=== PATIENT | female | born 1970 | race Caucasian/White ===

== ENCOUNTER 2025-02-09 22:40 | Emergency (ER) | payer BC, SELFPAY ==
--- NOTE | 2025-02-09 22:42 | ED.GENADUL_ITS ---
Discharge Plan Disposition Patient Disposition: Home Condition: Good Discharge Details Clinical Impression: Dog bite of axilla Primary Care Provider: Unknown,Unknown ED Provider: Ras King Meds and New Rx's Prescriptions: New amoxicillin-pot clavulanate 875-125 mg tablet 1 tab PO BID Qty: 6 0RF Continued oxcarbazepine 300 mg tablet 450 mg PO BID clonazepam [Klonopin] 0.5 mg tablet See Rx Instructions PO BID Rx Instructions: orally twice a day; take 1/4 of tab in morning, and 3/4 of tab in evening methylphenidate PO Rx Instructions: 54mg tab and 27mg tab in morning estradiol [Climara] 0.0375 mg/24 hr patch weekly 1 patch transdermal .COMPLEX Rx Instructions: 1 patch transdermally; change twice weekly Discharge Instructions Instructions: Animal Bites ED Additional Instructions: You were seen in the ED for a dog bite to the axilla area. There is no significant skin tears that require any type of repair. X-rays show no evidence of foreign body or fracture. Your pain and bruising is related to more of the crush injury. Ice on and off and alternating acetaminophen with ibuprofen should help. I will place you on antibiotics for 3 days to help prevent infection. You should follow-up with primary care next week if you are not improving. Return to ED for significantly worsening pain, fever, swelling, redness, other concerns. HPI General Mode of arrival: ambulatory . Date/Time Provider Initiated Documentation: 02/09/25 22:42 . Limitations to Documentation: no limitations . Information obtained by: patient and RN notes reviewed . HPI Narrative: Patient presents to ED with dog bite to the left axillary area. Patient was bitten by family dog, a [place] Malinois. The dog is up-to-date on immunizations. Patient has significant pain in the axillary area. There appear to be a couple of superficial skin lacerations but a lot of bruising. Denies injury elsewhere. She is not sure about her last tetanus shot. No numbness or weakness distally. Related Data Home Medications ?Medication ?Instructions ?Recorded ?Confirmed clonazepam 0.5 mg tablet (Klonopin) See Rx Instruction s PO BID 02/09/25 02/09/25 estradiol 0.0375 mg/24 hr weekly 1 patch transdermal . COMPLEX 02/09/25 02/09/25 transdermal patch (Climara) methylphenidate PO 02/09/25 oxcarbazepine 300 mg tablet 450 mg PO BID 02/09/2502/24 amoxicillin 875 mg-potassium 1 tab PO BID #6 tabs 01/31 05/27 clavulanate 125 mg tablet Previous Rx's ?Medication ?Instructions ?Recorded amoxicillin 875 mg-potassium 1 tab PO BID #6 tabs 01/31 05/27 clavulanate 125 mg tablet Allergies Allergy/AdvReac Type Severity Reaction Status Date / Time amitriptyline AdvReac Unknown facial Verified 02/09/25 23:03 paralysis cephalexin (From Keflex) AdvReac Unknown GI Bleeding Verified 02/09/25 23:03 Exam Narrative Exam Narrative: Const: WDWN female in NAD. VS per triage. HEENT: NC/AT. Normal facial exam. Neck: Supple. Trachea midline. Lungs: Normal respiratory effort. Cor: RRR. Good radial pulses. Neuro: A+O x 3. Normal speech, mentation, gait. Cranial nerves II - XII grossly intact. No gross motor or sensory deficit. Ext: No C/C/E. 2 small abrasions in the left axilla area. Possibly 1 small puncture wound. Significant bruising and tenderness. Normal strength and sensation distally. Normal radial pulse. Medical Decision Making Patient presenting to ED with a dog bite to the left axillary area. This appears to be more of a crush injury and bruise with possibly 1 small puncture. No laceration requiring closure. Will update tetanus as patient is unsure of when last was obtained. Will give ketorolac for pain. Will dose with Augmentin and obtain x-ray of the left shoulder to evaluate for potential foreign body, unlikely fracture. X-ray of the left shoulder is negative for fracture and no foreign body appreciated. Mostly superficial skin injury with potentially a small puncture wound. Will cover with Augmentin for 3 days. Recommend ice on and off and use of Tylenol or Motrin for pain. Follow-up with primary care next week if not improving. Return precautions provided. Imaging Data Radiologic Study: Attestation: I personally reviewed and interpreted this imaging study as follows: Imaging: X-Ray My impression: see [facility] All Active Problems (Updated 02/10/25 @ 00:36 by Ras King MD) Dog bite of axilla (Acute) Social History Smoking/Tobacco Use Status: Never Smoking risk assessment performed?: Yes Alcohol Intake: never Drug use: Never Substance use type: does not use Housing: house Do you feel safe at home: Yes Do you feel safe in your relationship?: Yes
[2025-02-09 22:47] VITALS: BP 126/74; PULSE 60; RESP 18; TEMP 36.4; O2SAT 100
[2025-02-09 22:53] VITALS: BP 126/74; PULSE 60; RESP 18; TEMP 36.4; O2SAT 100
[2025-02-09] MEDS: Tetanus & Diphtheria Tox,ADULT 0.5 ML VIAL IM (23:15)
[2025-02-09] MEDS: Ketorolac 30 MG/ML VIAL IM (23:15)
[2025-02-09] MEDS: Amoxicillin 875/Clav. 125 TAB PO (23:23)
--- NOTE | 2025-02-09 23:41 | DI.RAD_ITS ---
Exam(s) XR SHOULDER LT COMPLETE 2+V EXAM: XR SHOULDER LT COMPLETE 2+V CLINICAL HISTORY: dog bite. TECHNIQUE: 2D digital imaging was performed of the left shoulder. Five images were obtained. AP, Grashey, Y-view and axillary views were obtained. COMPARISON: No exams were available for comparison FINDINGS: BONES: No acute fracture is present. No bony destructive lesion is seen. JOINTS: No dislocation present. There are mild degenerative changes of the left acromioclavicular joint. SOFT TISSUE: Normal. There are no radiopaque foreign body seen in the soft tissues. IMPRESSION: 1. No acute abnormality. 2. The preliminary [facility] report was reviewed. DATA REPOSITORY: RADIATION DOSE DELIVERED:
--- NOTE | 2025-02-10 00:41 | DI.[facility]_ITS ---
PROCEDURE INFORMATION: Exam: XR Left Shoulder Exam date and time: 02/09/2025 11:39 PM Age: 54 years old Clinical indication: Injury or trauma; Other: Dog bite; Shoulder; Left; Injury date: 02/09/25 TECHNIQUE: Imaging protocol: Radiologic exam of the left shoulder. Views: 2 or more views. COMPARISON: No relevant prior studies available. FINDINGS: Bones/joints: No acute fracture or dislocation. No suspicious bony lesions. Soft tissues: Unremarkable. No unexpected radiopaque foreign bodies. No soft tissue emphysema. IMPRESSION: No acute radiographic findings. Dictated and Authenticated by: Ayaka Becerra MD. Orderin Fernando Ras MCFADDEN
[2025-02-10 00:45] VITALS: BP 124/70; PULSE 61; RESP 16; O2SAT 98
--- NOTE | 2025-02-10 09:00 | NUR.NOTE ---
Addendum entered by Razia Winn 02/10/25 09:11: Spoke with Ann and she is aware of the report. Alternate fax number [phone] report faxed. Original Note: Message left for [facility]; Ann Johnson [phone]; regarding report and that it will be faxed on Wednesday to the [facility] Clerk. Nursing Note:
== END 2025-02-10 00:46 | disposition home or self-care (01) ==
PROVIDERS: Emergency Provider Emergency Medicine; PCP Physician Assistant
DX: W54.0XXA Bitten by dog, initial encounter; S41.152A Open bite of left upper arm, initial encounter; Z23 Encounter for immunization
CPT/HCPCS: 99283; 99284; 96372; 90471; 90714; 73030; J1885